=== PATIENT | female | born 1955 | race Caucasian/White ===

== ENCOUNTER 2023-11-23 09:26 | Outpatient (CLI) | payer BC, MEDICAID | END 2023-11-23 23:59 | disposition home or self-care (01) | LOC: RAD 09:26 | PROVIDERS: ATTEND Family Medicine | DX: M17.11 Unilateral primary osteoarthritis, right knee (principal); M25.461 Effusion, right knee | CPT/HCPCS: 73564 ==

== ENCOUNTER 2023-11-29 19:27 | Inpatient (IN) | payer BC, MEDICAID ==
[~2023-11-29] VITALS: Ht 132.1 cm; Wt 75.0 kg
[2023-11-29 20:48] LABS: BASOPHILS # (AUTO) 0.1 X10'3 (0-0.2); BASOPHILS % (AUTO) 0.8 % (0-1); EOSINOPHILS # (AUTO) 0.4 X10'3 (0-0.9); EOSINOPHILS % (AUTO) 3.6 % (0-6); HEMATOCRIT 39.9 % (35.0-45.0); HEMOGLOBIN 13.1 g/dl (12.0-16.0); LYMPHOCYTES # (AUTO) 3.8 X10'3 (1.1-4.8); LYMPHOCYTES % (AUTO) 38.5 % (21-51); MEAN CORPUSCULAR HEMOGLOBIN 27.5 PG (27.0-31.0); MEAN CORPUSCULAR HGB CONC 32.9 g/dL (33.0-36.5); MEAN CORPUSCULAR VOLUME 83.8 FL (78-98); MEAN PLATELET VOLUME 7.7 FL (7.4-10.4); MONOCYTES # (AUTO) 0.6 X10'3 (0-0.9); MONOCYTES % (AUTO) 6.4 % (2-12); NEUTROPHILS % (AUTO) 50.7 % (42-75); PLATELET COUNT 328 X10'3 (140-440); RED BLOOD COUNT 4.76 X10'6 (4.20-5.60); RED CELL DISTRIBUTION WIDTH 13.7 % (11.5-14.5); WHITE BLOOD COUNT 9.9 X10'3 (4.5-11.0)
[2023-11-29 21:08] LABS: ALBUMIN 3.8 G/DL (3.4-5.0); ANION GAP 5 (8-16); BLOOD UREA NITROGEN 14 MG/DL (7-18); BUN/CREATININE RATIO 15.4 (10.0-20.0); CALCIUM 9.3 MG/DL (8.5-10.1); CHLORIDE 103 MMOL/L (99-107); CREATININE 0.91 MG/DL (0.40-0.90); GLUCOSE 187 MG/DL (70-104); POTASSIUM 4.6 MMOL/L (3.5-5.1); PRO BRAIN NATRIURETIC PEPTIDE 260 PG/ML (0-125); SODIUM 138 MMOL/L (135-145); TOTAL CARBON DIOXIDE 29.9 MMOL/L (24-32); eCRCL 25 ML/MIN; eGFR 61 ML/MIN
[2023-11-29] MEDS ORDERED: OMEP20CA16 PO (23:30)
[2023-11-29] MEDS ORDERED: SEMA7TAB2 PO (23:30)
[2023-11-29] MEDS ORDERED: LEVO150T8 PO (23:30)
[2023-11-29] MEDS ORDERED: LISI20TA28 PO (23:30)
[2023-11-29] MEDS ORDERED: CHLO25TA10 PO (23:30)
[2023-11-29] MEDS ORDERED: METF-900 PO (23:30)
[2023-11-29] MEDS ORDERED: OXYB-58 PO (23:30)
[2023-11-30] MEDS ORDERED: magnesium hydroxide 30ml (MOM) UD suspension PO PRN (00:50)
[2023-11-30] MEDS ORDERED: magnesium 2GM in 50ml NS 50 ML IV PRN (00:50)
[2023-11-30] MEDS ORDERED: potassium Cl 40MEQ/1/2NS 520ml 520 ML IV PRN (00:50)
[2023-11-30] MEDS ORDERED: DEXTROSE 15 GM of carb/4 tabs (each vial/BOTTLE has 4 tablets) PO PRN ×2 (00:50)
[2023-11-30] MEDS ORDERED: ondansetron/PF 4mg/2ml inj IV PRN (00:50)
[2023-11-30] MEDS ORDERED: potassium Cl 20 mEq SR tablet PO PRN ×2 (00:50)
[2023-11-30] MEDS ORDERED: magnesium 4gm in 100ml NS 100 ML IV PRN (00:50)
[2023-11-30] MEDS ORDERED: glucagon, human recombinant 1mg kit SUBCUT PRN (00:50)
[2023-11-30] MEDS ORDERED: dextrose 50%-water 50ml dispensing syringe IV PRN ×2 (00:50)
[2023-11-30] MEDS ORDERED: mag hydrox/Alum hydrox/simeth 30ml oral suspension PO PRN (00:50)
[2023-11-30] MEDS ORDERED: magnesium Cl slow-release 64mg tablet PO PRN (00:50)
[2023-11-30] MEDS: PERFLUTREN PROTEIN-A MICROSPHR (Optison) 0.22 MG/ML 3ML VIAL IV ONE (00:51)
[2023-11-30] MEDS: ketorolac tromethamine 15mg/ml inj. IV ONE (00:58)
[2023-11-30] MEDS: ringers solution, lacted 1,000 ML IV SCH (01:00)
[2023-11-30] MEDS: hydrALAZINE 20mg/ml inj. IV ONE (01:23)
[2023-11-30 06:57] LABS: CHOL/HDL RATIO 3.8 (0.00-4.99); CHOLESTEROL 167 MG/DL (0-200); HDL CHOLESTEROL 44 MG/DL (35-60); LDL CHOLESTEROL 93 MG/DL (50-100); TRIGLYCERIDES 188 MG/DL (20-135)
[2023-11-30] MEDS ORDERED: INSULIN LISPRO 100 UNIT/ML INSULN.PEN MULTI-DOSE SQ SCH (07:00)
[2023-11-30] MEDS: K and/or MAG REPLACEMENT MC SCH (07:25)
[2023-11-30] MEDS: chlorthalidone 25mg tablet PO SCH (07:38)
[2023-11-30] MEDS: heparin, porcine 5000 units/ml vial SQ SCH (07:39)
[2023-11-30] MEDS: lisinopril 20mg tablet PO SCH (07:39)
[2023-11-30] MEDS: levoTHYROXINE 75mcg tablet PO SCH (07:39)
[2023-11-30] MEDS: oxybutynin 5mg tablet PO SCH (07:39)
[2023-11-30] MEDS: pantoprazole 40mg Tablet.DR PO SCH (07:39)
[2023-11-30 09:30] VITALS: BP 158/68; PULSE 67; RESP 18; TEMP 98.2; O2SAT 100
[2023-11-30 11:00] VITALS: BP_SYST 160; BP_SYST 172; BP_DIAS 52; BP_DIAS 59; BP_DIAS 73; PULSE 63; PULSE 65; PULSE 67
[2023-11-30 11:44] LABS: BILIRUBIN,URINE NEGATIVE (Neg); CLARITY,URINE CLEAR (Clear); COLOR,URINE YELLOW (Yellow); GLUCOSE, URINE NEGATIVE (Neg); KETONES,URINE NEGATIVE (Neg); LEUKOCYTE ESTERASE ,URINE NEGATIVE (Neg); NITRITES, URINE NEGATIVE (Neg); OCCULT BLOOD,URINE NEGATIVE (Neg); PROTEIN,URINE NEGATIVE (Neg); UROBILINOGEN,URINE 0.2 E.U/dL (0.2-1.0)
[2023-11-30 11:52] LABS: UA COLLECTION TYPE NON-SPECIFIED
[2023-11-30] MEDS: insulin Lispro (HumaLOG) vial - multi-dose SQ SCH (12:00)
[2023-11-30 12:58] LABS: CHOL/HDL RATIO 3.7 (0.00-4.99); CHOLESTEROL 167 MG/DL (0-200); HDL CHOLESTEROL 45 MG/DL (35-60); LDL CHOLESTEROL 93 MG/DL (50-100); THYROID STIMULATING HORMONE 0.62 ulU/ml (0.34-4.50); TRIGLYCERIDES 164 MG/DL (20-135)
[2023-11-30 15:00] VITALS: BP 155/73; PULSE 65; RESP 17; TEMP 98; O2SAT 98
[2023-11-30 18:00] VITALS: BP 170/73; PULSE 67; RESP 14; TEMP 97.7; O2SAT 96
[2023-11-30 20:00] VITALS: RESP 14; O2SAT 96
[2023-11-30] MEDS: acetaminophen 325mg tablet PO PRN (21:43)
[2023-11-30 22:00] VITALS: BP_SYST 151; BP_SYST 173; BP_SYST 174; BP_DIAS 62; BP_DIAS 65; BP_DIAS 74; PULSE 70; PULSE 76; PULSE 79; RESP 16; TEMP 97.8; O2SAT 96
[2023-12-01 02:00] VITALS: BP 143/72; PULSE 66; RESP 16; TEMP 97.7; O2SAT 97
[2023-12-01 06:55] VITALS: BP 159/86; PULSE 60; RESP 14; TEMP 97.5; O2SAT 97
[2023-12-01 08:19] LABS: BASOPHILS % (AUTO) 0.6 % (0-1); EOSINOPHILS # (AUTO) 0.4 X10'3 (0-0.9); EOSINOPHILS % (AUTO) 5.6 % (0-6); HEMATOCRIT 38.2 % (35.0-45.0); HEMOGLOBIN 12.6 g/dl (12.0-16.0); LYMPHOCYTES # (AUTO) 2.9 X10'3 (1.1-4.8); LYMPHOCYTES % (AUTO) 42.3 % (21-51); MEAN CORPUSCULAR HEMOGLOBIN 27.9 PG (27.0-31.0); MEAN CORPUSCULAR HGB CONC 33.1 g/dL (33.0-36.5); MEAN CORPUSCULAR VOLUME 84.4 FL (78-98); MEAN PLATELET VOLUME 8.4 FL (7.4-10.4); MONOCYTES # (AUTO) 0.5 X10'3 (0-0.9); MONOCYTES % (AUTO) 7.8 % (2-12); NEUTROPHILS % (AUTO) 43.7 % (42-75); PLATELET COUNT 288 X10'3 (140-440); RED BLOOD COUNT 4.53 X10'6 (4.20-5.60); RED CELL DISTRIBUTION WIDTH 13.6 % (11.5-14.5)
[2023-12-01 08:30] LABS: ALANINE AMINOTRANSFERASE 18 U/L (12-78); ALBUMIN 3.3 G/DL (3.4-5.0); ALBUMIN/GLOBULIN RATIO 0.8 (1.1-1.5); ALKALINE PHOSPHATASE 64 IU/L (46-116); ANION GAP 4 (8-16); ASPARTATE AMINO TRANSFERASE 14 U/L (10-37); BILIRUBIN,TOTAL 0.6 MG/DL (0.1-1.0); BLOOD UREA NITROGEN 23 MG/DL (7-18); BUN/CREATININE RATIO 23.5 (10.0-20.0); CALCIUM 9.3 MG/DL (8.5-10.1); CHLORIDE 103 MMOL/L (99-107); CREATININE 0.98 MG/DL (0.40-0.90); GLUCOSE 190 MG/DL (70-104); PHOSPHORUS 3.7 MG/DL (2.3-4.5); POTASSIUM 4.5 MMOL/L (3.5-5.1); SODIUM 135 MMOL/L (135-145); TOTAL CARBON DIOXIDE 28.4 MMOL/L (24-32); TOTAL PROTEIN 7.5 G/DL (6.4-8.2); eCRCL 23 ML/MIN; eGFR 56 ML/MIN
[2023-12-01 08:38] VITALS: RESP 14; O2SAT 97
[2023-12-01] MEDS: normal saline 1000ml 1,000 ML IV SCH (09:14)
[2023-12-01 11:20] VITALS: BP 185/75; PULSE 65; RESP 21; TEMP 97.8; O2SAT 95
[2023-12-01 11:23] VITALS: BP_SYST 167; BP_SYST 181; BP_SYST 185; BP_DIAS 69; BP_DIAS 75; BP_DIAS 76; PULSE 61; PULSE 64; PULSE 67
[2023-12-01] MEDS: hydrALAZINE 20mg/ml inj. IV PRN (11:31)
[2023-12-01] MEDS: normal saline 500ml IV soln 500 ML IV ONE (13:56)
[2023-12-01] MEDS: aspirin 81mg tab.chew PO ONE (13:59)
[2023-12-01 15:00] VITALS: BP 157/87; PULSE 99; RESP 21; TEMP 98.1; O2SAT 97
[2023-12-01] MEDS ORDERED: ATOR20TA66 PO (15:17)
[2023-12-01] MEDS ORDERED: ASPI-1071 PO (15:17)
[2023-12-02] MEDS ORDERED: aspirin 81mg, enteric-coated 1 TAB TABLET.DR PO SCH (08:00)
[2023-12-02] MEDS ORDERED: atorvastatin 20mg tablet PO SCH (08:00)
== END 2023-12-01 17:17 | disposition home or self-care (01) | DRG 68 ==
LOC: ER 19:28 → ED HOLD 11-30 01:14 → EDBEDREQ 11-30 01:46 → EDBEDREQDT 11-30 01:46 → EDBEDREQTM 11-30 01:46 → PCU 3S 11-30 09:28
PROVIDERS: ADMIT Internal Medicine Critical Care Medicine; ATTEND Family Medicine
PROC: 4A00X4Z Measurement of Central Nervous Electrical Activity, External Approach (ICD-10-PCS; principal; 2023-12-01)
DX: I65.01 Occlusion and stenosis of right vertebral artery (principal); E86.0 Dehydration; I16.0 Hypertensive urgency; E11.9 Type 2 diabetes mellitus without complications; I10 Essential (primary) hypertension; E78.00 Pure hypercholesterolemia, unspecified; I95.1 Orthostatic hypotension; G89.29 Other chronic pain; E03.9 Hypothyroidism, unspecified; M54.9 Dorsalgia, unspecified; Z88.0 Allergy status to penicillin; Z80.42 Family history of malignant neoplasm of prostate; Z80.0 Family history of malignant neoplasm of digestive organs; Z79.899 Other long term (current) drug therapy
CPT/HCPCS: 36415; 70450; 70544; 70547; 70551; 71045; 80048; 80053; 80061; 81003; 82948; 83036; 83735; 83880; 84100; 84443; 84484; 85025; 87081; 93005; 93306; 93880; 95816; 97161; 97530; 99285; G0378; J0360; J1644; J1815; J1885; J7030; J7040; J7120